=== PATIENT | female | born 1935 | race Caucasian/White ===

== ENCOUNTER 2025-01-09 09:48 | Outpatient (CLI) | payer MEDICARE, SELFPAY ==
[2025-01-09 10:27] LABS: CRP < 0.5 mg/dL (<1.0)
--- OUTSIDE RECORDS SUMMARY | 2025-01-09 10:33 | XMS_ITS | Encounter Summary ---
Author Organization [facility] Address 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 Gender Identity Not on file Sexual Orientation Not on file documented as of this encounter Last Filed Vital Signs Vital Sign Reading Time Taken Comments Blood Pressure 122/70 06/22/2003 9:45 AM CDT Pulse - - Temperature - - Respiratory Rate - - Oxygen Saturation - - Inhaled Oxygen Concentration - - Weight 64 kg (141 lb) 06/22/2003 9:45 AM CDT Height 153.7 cm (5' 0.5) 06/22/2003 9:45 AM CDT Body Mass Index 27.08 06/22/2003 9:45 AM CDT documented in this encounter Plan of Treatment Not on file documented as of this encounter Visit Diagnoses Not on filedocumented in this encounter Care Teams Invoice Coder Relationship Specialty Start Date End Date Tr Hays MD [address] [place] [phone] PCP - General Internal Medicine 05/28/24 documented as of this encounter
--- OUTSIDE RECORDS SUMMARY | 2025-01-09 10:33 | XMS_ITS | Encounter Summary ---
Author Organization [facility] Address [address] [place] [address] Care Team Providers Care Learning And Development Officer Name Role Phone Tr Hays MD Primary Care Provider Encounter Details Date Type Department Care Team (Late st Contact Info) Description 01/28/2007 Orders Only [facility] Internal Medicine [address] [address] Tr Hays MD [address] [place] [phone] Social History Tobacco Use Types Packs/Day Years Used Date Smoking Tobacco: Never Assessed Comments Unknown Sex and Gender Information Value Date Recorded Sex Assigned at Not on file Legal Sex Female 2:56 AM QUARTER BACKER Gender Identity Not on file Sexual Orientation Not on file documented as of this encounter Plan of Treatment Not on file documented as of this encounter Visit Diagnoses Not on filedocumented in this encounter Care Teams Learning And Development Officer Relationship Specialty Start Date End Date Tr Hays MD [address] [place] [address] [address] [place] [address] PCP - General Internal Medicine 05/28/24 documented as of this encounter
--- OUTSIDE RECORDS SUMMARY | 2025-01-09 10:33 | XMS_ITS | Encounter Summary ---
Author Organization [facility] Address 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
--- OUTSIDE RECORDS SUMMARY | 2025-01-09 10:33 | XMS_ITS | Encounter Summary ---
Author Organization [facility] Address 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 Gender Identity Not on file Sexual Orientation Not on file documented as of this encounter Last Filed Vital Signs Vital Sign Reading Time Taken Comments Blood Pressure 130/70 05/29/2005 10:00 AM CHILDHOOD TEACHER Pulse - - Temperature - - Respiratory Rate - - Oxygen Saturation - - Inhaled Oxygen Concentration - - Weight 66.7 kg (147 lb) 05/29/2005 10:00 AM CHILDHOOD TEACHER Height - - Body Mass Index 28.24 06/22/2003 9:45 AM CDT documented in this encounter Plan of Treatment Not on file documented as of this encounter Visit Diagnoses Not on filedocumented in this encounter Care Teams Coal Cutting Machine Operator Relationship Specialty Start Date End Date Tr Hays MD [address] [phone] PCP - General Internal Medicine 05/28/24 documented as of this encounter
--- OUTSIDE RECORDS SUMMARY | 2025-01-09 10:33 | XMS_ITS | Encounter Summary ---
Author Organization [facility] Address [address] [place] [address] Care Team Providers Care Typer Name Role Phone Tr Hays MD Primary Care Provider [phone] Encounter Details Date Type Department Care Team (Late st Contact Info) Description 10/26/2003 Outpatient [facility] Internal Medicine [address] [address] Tr Hays MD [address] [place] [phone] Social History Tobacco Use Types Packs/Day Years Used Date Smoking Tobacco: Never Assessed Comments Unknown Sex and Gender Information Value Date Recorded Sex Assigned at Not on file Legal Sex Female 2:56 AM SUBJECT SCIENTIFIC RESEARCH Gender Identity Not on file Sexual Orientation Not on file documented as of this encounter Last Filed Vital Signs Vital Sign Reading Time Taken Comments Blood Pressure 130/70 10/26/2003 11:00 AM CDT Pulse - - Temperature - - Respiratory Rate - - Oxygen Saturation - - Inhaled Oxygen Concentration - - Weight 63.5 kg (140 lb) 10/26/2003 11:00 AM CDT Height - - Body Mass Index 26.89 06/22/2003 9:45 AM CDT documented in this encounter Plan of Treatment Not on file documented as of this encounter Visit Diagnoses Not on filedocumented in this encounter Care Teams Typer Relationship Specialty Start Date End Date Tr Hays MD [address] [phone] PCP - General Internal Medicine 05/28/24 documented as of this encounter
--- OUTSIDE RECORDS SUMMARY | 2025-01-09 10:33 | XMS_ITS | Encounter Summary ---
Author Organization [facility] Address [address] [place] [address] Care Team Providers Care Furniture Removalist Name Role Phone Tr Hays MD Primary Care Provider Encounter Details Date Type Department Care Team (Late st Contact Info) Description 05/27/2007 Outpatient [facility] Internal Medicine [address] [address] Tr Hays MD [address] [place] [phone] Social History Tobacco Use Types Packs/Day Years Used Date Smoking Tobacco: Never Assessed Comments Unknown Sex and Gender Information Value Date Recorded Sex Assigned at Not on file Legal Sex Female 2:56 AM INSULATION CUPOLA CHARGER Gender Identity Not on file Sexual Orientation Not on file documented as of this encounter Plan of Treatment Not on file documented as of this encounter Visit Diagnoses Not on filedocumented in this encounter Care Teams Furniture Removalist Relationship Specialty Start Date End Date Tr Hays MD [address] [place] [address] [address] [place] [phone] PCP - General Internal Medicine 05/28/24 documented as of this encounter
--- OUTSIDE RECORDS SUMMARY | 2025-01-09 10:33 | XMS_ITS | Encounter Summary ---
Author Organization [facility] Address [address] [place] [address] Care Team Providers Care Infant Toddler Lead Teacher Name Role Phone Tr Hays MD Primary Care Provider [phone] Encounter Details Date Type Department Care Team (Late st Contact Info) Description 09/21/2003 Outpatient [facility] Internal Medicine [address] [address] Tr Hays MD [address] [place] [phone] Social History Tobacco Use Types Packs/Day Years Used Date Smoking Tobacco: Never Assessed Comments Unknown Sex and Gender Information Value Date Recorded Sex Assigned at Not on file Legal Sex Female 2:56 AM LEAD DATA ENTRY OPERATOR Gender Identity Not on file Sexual Orientation Not on file documented as of this encounter Last Filed Vital Signs Vital Sign Reading Time Taken Comments Blood Pressure 180/70 09/21/2003 10:15 AM CDT Pulse - - Temperature - - Respiratory Rate - - Oxygen Saturation - - Inhaled Oxygen Concentration - - Weight 64.9 kg (143 lb) 09/21/2003 10:15 AM CDT Height - - Body Mass Index 27.47 06/22/2003 9:45 AM CDT documented in this encounter Plan of Treatment Not on file documented as of this encounter Visit Diagnoses Not on filedocumented in this encounter Care Teams Infant Toddler Lead Teacher Relationship Specialty Start Date End Date Tr Hays MD [address] [phone] PCP - General Internal Medicine 05/28/24 documented as of this encounter
--- OUTSIDE RECORDS SUMMARY | 2025-01-09 10:33 | XMS_ITS | Encounter Summary ---
Author Organization [facility] Address [address] [place] [address] Care Team Providers Care Tuckpointer Name Role Phone Tr Hays MD Primary Care Provider [phone] Encounter Details Date Type Department Care Team (Late st Contact Info) Description 01/02/2007 Outpatient [facility] Internal Medicine [address] [address] Tr Hays MD [address] [place] [phone] Social History Tobacco Use Types Packs/Day Years Used Date Smoking Tobacco: Never Assessed Comments Unknown Sex and Gender Information Value Date Recorded Sex Assigned at Not on file Legal Sex Female 2:56 AM LOWER IN SUPERVISOR Gender Identity Not on file Sexual Orientation Not on file documented as of this encounter Last Filed Vital Signs Vital Sign Reading Time Taken Comments Blood Pressure 130/70 01/02/2007 10:00 AM CDT Pulse - - Temperature - - Respiratory Rate - - Oxygen Saturation - - Inhaled Oxygen Concentration - - Weight 68 kg (150 lb) 01/02/2007 10:00 AM CDT Height - - Body Mass Index 28.81 06/22/2003 9:45 AM CDT documented in this encounter Plan of Treatment Not on file documented as of this encounter Visit Diagnoses Not on filedocumented in this encounter Care Teams Tuckpointer Relationship Specialty Start Date End Date Tr Hays MD [address] [phone] PCP - General Internal Medicine 05/28/24 documented as of this encounter
--- OUTSIDE RECORDS SUMMARY | 2025-01-09 10:33 | XMS_ITS | Encounter Summary ---
Author Organization [facility] Address 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 Gender Identity Not on file Sexual Orientation Not on file documented as of this encounter Last Filed Vital Signs Vital Sign Reading Time Taken Comments Blood Pressure 130/70 12/26/2004 10:30 AM CDT Pulse - - Temperature - - Respiratory Rate - - Oxygen Saturation - - Inhaled Oxygen Concentration - - Weight 65.8 kg (145 lb) 12/26/2004 10:30 AM CDT Height - - Body Mass Index 27.85 06/22/2003 9:45 AM CDT documented in this encounter Plan of Treatment Not on file documented as of this encounter Visit Diagnoses Not on filedocumented in this encounter Care Teams Security Sergeant Relationship Specialty Start Date End Date Tr Hays MD [address] [phone] PCP - General Internal Medicine 05/28/24 documented as of this encounter
--- OUTSIDE RECORDS SUMMARY | 2025-01-09 10:33 | XMS_ITS | Encounter Summary ---
Author Organization [facility] Address 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 Gender Identity Not on file Sexual Orientation Not on file documented as of this encounter Last Filed Vital Signs Vital Sign Reading Time Taken Comments Blood Pressure 130/70 08/29/2004 10:30 AM CDT Pulse - - Temperature - - Respiratory Rate - - Oxygen Saturation - - Inhaled Oxygen Concentration - - Weight 64.4 kg (142 lb) 08/29/2004 10:30 AM CDT Height - - Body Mass Index 27.28 06/22/2003 9:45 AM CDT documented in this encounter Plan of Treatment Not on file documented as of this encounter Visit Diagnoses Not on filedocumented in this encounter Care Teams Night Nurse Relationship Specialty Start Date End Date Tr Hays MD [address] [phone] PCP - General Internal Medicine 05/28/24 documented as of this encounter
--- OUTSIDE RECORDS SUMMARY | 2025-01-09 10:33 | XMS_ITS | Encounter Summary ---
Author Organization [facility] Address 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
--- OUTSIDE RECORDS SUMMARY | 2025-01-09 10:33 | XMS_ITS | Encounter Summary ---
Author Organization [facility] Address 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 Gender Identity Not on file Sexual Orientation Not on file documented as of this encounter Last Filed Vital Signs Vital Sign Reading Time Taken Comments Blood Pressure 140/80 01/22/2004 10:45 AM MANAGER INFRASTRUCTURE Pulse - - Temperature - - Respiratory Rate - - Oxygen Saturation - - Inhaled Oxygen Concentration - - Weight 63 kg (139 lb) 01/22/2004 10:45 AM MANAGER INFRASTRUCTURE Height - - Body Mass Index 26.7 06/22/2003 9:45 AM CDT documented in this encounter Plan of Treatment Not on file documented as of this encounter Visit Diagnoses Not on filedocumented in this encounter Care Teams Academic Support Director Relationship Specialty Start Date End Date Tr Hays MD [address] [phone] PCP - General Internal Medicine 05/28/24 documented as of this encounter
--- OUTSIDE RECORDS SUMMARY | 2025-01-09 10:33 | XMS_ITS | Encounter Summary ---
Author Organization [facility] Address [address] [place] [address] Care Team Providers Care Curtain Cutter Hand Name Role Phone Tr Hays MD Primary Care Provider [phone] Encounter Details Date Type Department Care Team (Late st Contact Info) Description 05/29/2005 Orders Only [facility] Internal Medicine [address] [address] Tr Hays MD [address] [place] [phone] Social History Tobacco Use Types Packs/Day Years Used Date Smoking Tobacco: Never Assessed Comments Unknown Sex and Gender Information Value Date Recorded Sex Assigned at Not on file Legal Sex Female 2:56 AM EMBEDDER Gender Identity Not on file Sexual Orientation Not on file documented as of this encounter Progress Notes * Tr Hays MD - 12/12/2007 7:30 PM CDT WEIGHT: 147lbs BLOOD PRESSURE: 130/70 Right Arm Sitting NURSE NAME: Alexa Martin R CHIEF COMPLAINT Patient here for follow up hyperlipidemia, hypertension. HISTORY: HISTORY: 244.9-HYPOTHYROIDISM No complications noted from the medication presently being used.TSH high 272.4-HYPERLIPIDEMIA saurabh zetia 401.9-HYPERTENSION, UNSPECIFIED saurabh med 790.5-ABNORMAL LIVER ENZYMES slight inc-inc etoh in [place] 780.79-FATIGUE improved with zetia cut to qod but tsh inc ROS: CARDIAC: No chest pain, palpitations, orthopnea, dyspnea on exertion, or paroxysmal nocturnal dyspnea. RESPIRATORY: No dyspnea, cough, hemoptysis or wheezing. : No frequency, urgency, hematuria or dysuria. GI: No abdominal pain, nausea, vomiting, diarrhea, constipation, melena, or hematochezia. PAST MEDICAL HISTORY: inc lft, htn, thyroid, chol SOCIAL HISTORY: distant tob, > 30 years ago PHYSICAL EXAMINATION: CONSTITUTIONAL: GENERAL APPEARANCE: Healthy appearing patient in no distress. EYES: PUPILS: Pupils equal and normally reactive to light and accommodation.no twitch EARS, NOSE, MOUTH AND THROAT: ORAL: Inspection of gums, lips, palate, and teeth normal. No scars, lesions, or masses. Oral mucosaunremarkable with non-inflamed posterior pharynx. NECK/THYROID: Trachea midline. No thyroid enlargement, tenderness, or mass. No supraclavicular or cervical adenopathy. RESPIRATORY: Clear to auscultation and percussion. Normal respiratory effort. CARDIOVASCULAR: CARDIAC: Regular rhythm. No murmurs, rubs, or gallops. ARTERIAL: Aortic pulses of normal amplitude with no bruits. EDEMA/VARICOSITIES OF EXTREMITIES: No edema or varicosities. GASTROINTESTINAL: ABDOMEN: Soft, non-tender, without masses. Bowel sounds active. LIVER/SPLEEN/KIDNEY: No hepatosplenomegaly, tenderness or nodularity. Kidneys not palpable. SKIN: SKIN: Warm, dry, no diaphoresis, no significant lesions, irritation, rashes or ulcers. No induration, obvious subcutaneous nodules or tightening. ASSESSMENT/PLAN: 244.9-HYPOTHYROIDISM inc med, reassess MEDICATIONS: LEVOXYL ORAL TABLET 100 MCG, 1 Every Day, 30 Dispensed, status: NEW PRESCRIPTION, 05/29/2005. LAB ORDERS: Order number: [id number] Test Ordered: TSH 899 1 mo 272.4-HYPERLIPIDEMIA cont med, discussed 401.9-HYPERTENSION, UNSPECIFIED cont med 790.5-ABNORMAL LIVER ENZYMES stable LAB ORDERS: 3 mo Order number: [id number] Test Ordered: COMPREHENSIVE METABOLIC PANEL W/ GLOMERULAR FILTRATION RATE, ESTIMATED (EGFR) 35381 Order number: [id number] Test Ordered: LIPID PANEL 7600 Order number: [id number] Test Ordered: TSH 899 Order number: [id number] Test Ordered: VITAMIN B12 927 780.79-FATIGUE reassess lab as above PREVENTIVE COUNSELING The patient was counseled regarding diet, the appropriate use of alcohol. RETURN VISIT : Patient instructed to return in 3 months. Electronically Signed by: Tr Hays MD on Sunday, May 29, 2005 documented in this encounter Plan of Treatment Not on file documented as of this encounter Visit Diagnoses Not on filedocumented in this encounter Care Teams Curtain Cutter Hand Relationship Specialty Start Date End Date Tr Hays MD [address] [place] [phone] PCP - General Internal Medicine 05/28/24 documented as of this encounter
--- OUTSIDE RECORDS SUMMARY | 2025-01-09 10:33 | XMS_ITS | Encounter Summary ---
Author Organization [facility] Address [address] [place] [address] Care Team Providers Care Electrical Accessories I Assembler Name Role Phone Tr Hays MD Primary Care Provider [phone] Encounter Details Date Type Department Care Team (Late st Contact Info) Description 04/23/2007 Orders Only [facility] [place] Internal Medicine [address] [address] Pranay Padilla MD [address] [place] [phone] Social History Tobacco Use Types Packs/Day Years Used Date Smoking Tobacco: Never Assessed Comments Unknown Sex and Gender Information Value Date Recorded Sex Assigned at Not on file Legal Sex Female 2:56 AM CONCEPT ARTIST Gender Identity Not on file Sexual Orientation Not on file documented as of this encounter Progress Notes * Pranay Padilla MD - 07/17/2007 1:25 PM CDT TIME:03:14 pm PATIENT`S HOME PHONE: PATIENT`S WORK PHONE: PATIENT`S INSURANCE: MEDICARE WHO TOOK THE CALL: Janeen Hussein L GENERAL INFORMATION ALTERNATIVE PHONE NUMBER: [phone] WHO CALLED: Patient`s spouse called. CURRENT ALLERGY LIST: [facility] NUMBER: [phone] PROBLEMS: [place] PT. Pt is in [place]. Feels warm. Has no thermometer. CONGESTION: Patient complains of chest congestion, complains of sinus congestion. The symptoms began approximately 3 days ago. Therapies tried include cough syrup, an over the counter nasal decongestant, antihistamines. clear sinus congestion. Chest tight & she's wheezing. Harsh breathing &rattling in chest at night. COUGH:Patient complains of cough. The symptoms began approximately 3 days ago. yellow phlegm. Cough keeping her awake at night. HEADACHE: Patient complains of headache. The symptoms began approximately 3 days ago. RUNNY NOSE: Patient complains of runny nose. The runny nose symptoms began approximately 3 days ago. SECTION 1: REQUESTED ACTION [email or web address] 04/23/07 at 03:19 pm: MEDICATION REQUEST: Patient wants medications and can not come in. DOCTOR`S RESPONSE: khurram 04/23/07 at 04:20 pm MEDICATIONS: Call in to Pharmacy ZITHROMAX Z-CARLOS ORAL TABLET 250 MG, ORAL DAILY DIRECTED, 1 Dispensed, status: NEW PRESCRIPTION, 04/23/2007. PROVENTIL HFA INHALATION AEROSOL SOLUTION 108 (90 BASE) MCG/ACT, 2 PUFFS FOUR TIMES daily INHALATION NEEDED, 1 Dispensed, 1 Fills, status: NEW PRESCRIPTION, 04/23/2007. plus OTC mucinex Instruct patient to call if symptoms persist. FINAL ACTION: yisel 04/23/07 at 05:10 pm Spoke with patient 04/23/07 at 05:10 pm. Called pharmacy at 04/23/07 at 05:10 pm. Electronically Signed by: Anitra Barahona on Monday, April 23, 2007 documented in this encounter Plan of Treatment Not on file documented as of this encounter Visit Diagnoses Not on filedocumented in this encounter Care Teams Electrical Accessories I Assembler Relationship Specialty Start Date End Date Tr Hays MD [address] [place] [phone] PCP - General Internal Medicine 05/28/24 documented as of this encounter
--- OUTSIDE RECORDS SUMMARY | 2025-01-09 10:33 | XMS_ITS | Encounter Summary ---
Author Organization [facility] Address 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
--- OUTSIDE RECORDS SUMMARY | 2025-01-09 10:33 | XMS_ITS | Encounter Summary ---
Author Organization [facility] Address 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 HISTORY: HISTORY: 244.9-HYPOTHYROIDISM saurabh med has fatigue 272.4-HYPERLIPIDEMIA pt qu if zetia causing sx, stopped, lab slightly high 401.9-HYPERTENSION, UNSPECIFIED saurabh med 780.79-FATIGUE as above 786.00-DYSPNEA AND RESP ABNORMALITY UNSPEC occ with cough ROS: ENDOCRINE: No heat or cold intolerance, no excessive thirst. CARDIAC: No chest pain, palpitations, orthopnea, dyspnea [...] APPEARANCE: Healthy appearing patient in no distress. EARS, NOSE, MOUTH AND THROAT: EARS: Tympanic membranes shiny without retraction. Canals unremarkable. Hearing grossly normal. ORAL: Inspection of gums, lips, palate, and [...] obvious subcutaneous nodules or tightening. ASSESSMENT/PLAN: 244.9-HYPOTHYROIDISM cont med, recheck lab LAB ORDERS: today Order number: [id number] Test Ordered: TSH 899 272.4-HYPERLIPIDEMIA discussed, pt does not want med at this pt, reassess, enc diet and exercise 401.9-HYPERTENSION, UNSPECIFIED cont med LAB ORDERS: 3mo Order number: [id number] Test Ordered: COMPREHENSIVE METABOLIC PANEL W/ GLOMERULAR FILTRATION RATE, ESTIMATED (EGFR) 67782 Order number: [id number] Test Ordered: LIPID PANEL 7600 Order number: [id number] Test Ordered: TSH 899 Order number: [id number] Test Ordered: CBC (INCLUDES DIFF/PLT) 6399 Order number: [id number] Test Ordered: VITAMIN B12 927 786.00-DYSPNEA AND RESP ABNORMALITY UNSPEC cxr ok last year, discussed, reassess if worsens 174.9-MALIG NEOPLASM BREAST UNSPEC SITE discussed, has been stable RETURN VISIT : Patient instructed to return in 3 months. Electronically Signed by: Tr Hays MD on Sunday, August 28, 2005 documented in this encounter Plan of Treatment Not on file documented as of this encounter Visit Diagnoses Not on filedocumented in this encounter Care Teams Hybrid Car Mechanic Relationship Specialty Start Date End Date Tr Hays MD [address] [place] [phone] PCP - General Internal Medicine 05/28/24 documented as of this encounter
--- OUTSIDE RECORDS SUMMARY | 2025-01-09 10:33 | XMS_ITS | Encounter Summary ---
Author Organization [facility] Address [address] [place] [address] Care Team Providers Care Timekeeper Supervisor Name Role Phone Tr Hays MD Primary Care Provider Encounter Details Date Type Department Care Team (Late st Contact Info) Description 05/27/[address] 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
--- OUTSIDE RECORDS SUMMARY | 2025-01-09 10:34 | XMS_ITS | Clinical Summary ---
Author Organization [facility] Address [address] [place] [address] Care Team Providers Care Target Network Analyst Name Role Phone Tr Hays MD Primary Care Provider [phone] Allergies Active Allergy Reactions Criticality Noted Date Comments Ezetimibe Muscle Pain Low 02/15/2018 Medications ASPIRIN 81 mg Oral Tab Take 81 mg by mouth daily. Active MULTIVITAMIN Oral Cap Take by mouth daily. Active cholecalciferol, Vitamin D3, (VITAMIN D3) 25 mcg (1,000 unit) Capsule Take 1 Cap by mouth daily. Active cyanocobalamin 1,000 mcg Tablet Take 1,000 mcg by mouth. Two times a week Active VIT A/VIT C/VIT E/ZINC/COPPER (OCUVITE PRESERVISION ORAL) Take 2 Caps by mouth daily. Active ketorolac tromethamine (ACULAR) 0.5 % solution daily. 1 8 Active propylene glycoL 0.6 % Drops 2 Drops by Ophthalmic route daily. Active mineral oil/petrolatum,w naveen (SYSTANE NIGHTTIME OP) 2 Drops by Ophthalmic route daily at bedtime. Active amLODIPine (NORVASC) 5 mg tablet TAKE 1 AND 1/2 TABLETS DAILY (REPLACEMENT FOR LOSTBOTTLE) 135 Tablet 3 2 Active Synthroid 137 mcg tablet TAKE 1 TABLET DAILY 90 Tablet 3 2 Active amLODIPine (NORVASC) 5 mg tablet Take 1.5 Tablets (7.5 mg) by mouth daily. Replacement for lost bottle 135 Tablet 3 2 Active losartan-hydroCH LOROthiazide (HYZAAR) 100-12.5 mg tablet Take 1 Tablet by mouth daily. 90 Tablet 3 3 Active nebivoloL (BYSTOLIC) 10 mg Tablet TAKE 1 TABLET BY MOUTH DAILY 90 Tablet 3 3 Active Active Problems Patient Care Coordination No te Formatting of this note migh t be different from the original. 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 Hyperlipidemia 05/30/2004 Abnormal levels of other serum enzymes 4 Hypothyroidism 06/22/2003 Resolved Problems Problem Noted Date Diagnosed Date Resolved Date Lung mass 08/20/2009 06/07/2010 CAP (community acquired pneumonia) 08/20/2009 06/07/[address] 08/20/2009 06/07/2010 Herpes zoster without mention of complication 05/19/19 07 09/26/2007 Malignant neoplasm of female breast 08/28/2005 08/15/2016 Other malaise and fatigue 05/29/2005 Respiratory abnormality, unspecified 05/30/2004 09/26/2007 Unspecified essential hypertension 06/22/2003 06/07/2010 Immunizations Immunization Administration Dates Next Due (ADACEL/BOOSTRIX)(10 YR UP) TDAP VACCINE, 0.5ML, IM 09/07/2009 (PNEUMOVAX 23)(50 YRS UP) PN EUMOCOCCAL POLYSACCHARIDE (PPV23) 0.5 ML, IM 08/02/2018,02/14/2011,05/30/2004 (PREVNAR 13)(6 WKS UP) PNEUM OCOCCAL CONJUGATE (PCV13) 0.5 ML, IM 06/26/2013 (SHINGRIX)(50 YRS UP) ZOSTER VACCINE RECOMBINANT, 0.5 ML, IM 02/10/2019,11/25/2018 (SPIKEVAX) (12 YRS UP PRIMAR Y SERIES) COVID-19 VACCINE - MRNA-1273(PF) 100 MCG/0.5 ML IM SUSP 05/26/2020,04/28/2020 (TDVAX)(7 YRS UP) TETANUS AN D DIPHTHERIA TOXOIDS, ADSORBED (2 LF OF TETANUS TOXOID AND 2 LF OF DIPHTHERIA TOXOID), 0.5ML (PF), IM 03/05/2000 INFLUENZA VACCINE HIGH DOSE QUADRIVALENT 65 YR UP PF IM 12/01/2021,11/24/2019 Influenza Seasonal Unspecifi ed Formulation IM 2015,2013,11/27/2012,11/03,12/19/2010,11/22/2009 Influenza Vaccine High Dose 65+ Yrs IM 0 11/18/2020,11/18/2019,11/25/2018,11/20,12/05/2016,11/18/2014 Zoster Vaccine Live SQ 2013 Family History Medical History Relation Name Comments Other Father leukemia Breast Cancer Mother Relation Name Status Comments Father Mother Social History Tobacco Use Types Packs/Day Years Used Date Smoking Tobacco: Former Cigarettes 1 30 0 1954 - 1984 Smokeless Tobacco: Never Tobacco Cessation:Counseling Given: No Alcohol Use Standard Drinks/Week Comments Yes 1 (1 standard drink = 0.6 oz pur e alcohol) occasional Financial Resource Strain Answer Date R ecorded How hard is it for you to pa y for the very basics like food, housing, medical care, and heating? Not hard at all 02/16/2021 Food Insecurity Answer Date Recorded In the past 12 months, have you worried that your food would run out before you had money to buy more? Never true 02/16/2021 In the past 12 months, did y ou run out of food and didn't have money to buy more? Never true 02/16/2021 Transportation Needs Answer Date Record ed In the past 12 months, has l ack of transportation kept you from medical appointments or from getting medications? 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 Gender Identity Not on file Sexual Orientation Not on file Last Filed Vital Signs Vital Sign Reading Time Taken Comments Blood Pressure 140/82 08/28/2022 10:42 AM CDT Pulse 67 08/28/2022 10:42 AM CDT Temperature 36.5 C (97.7 F) 08/28/2022 10:42 AM CDT Respiratory Rate 15 08/28/2022 10:42 AM CDT Oxygen Saturation 95% 08/28/2022 10:42 AM CDT Inhaled Oxygen Concentration - - Weight 66.4 kg (146 lb 6.4 oz) 08/28/2022 10:42 AM CDT Height 149.9 cm (4' 11) 08/28/2022 10:42 AM CDT Body Mass Index 29.57 08/28/2022 10:42 AM CDT Plan of Treatment Health Maintenance Due Date Last Done Comments RSV VACCINE (60+ or ) (1 - 1-dose 75+ series) 11/18/2011 DTAP/TDAP/TD VACCINES (2 - T d or Tdap) 09/08/2019 09/07/2009, 03/05/2000 [place] ([place]) Preventative Visit/Annual Wellness Visit 03/05/2024 08/28/2022, 02/16/2021, 12/17/2019, Additional history exists BREAST CANCER SCREENING 09/03/2024 09/04/19 24, 07/21/2022, 07/21/2022, Additional history exists INFLUENZA VACCINE (#1) 2024 2, 11/18/2020, 11/24/2019, Additional history exists COVID-19 Vaccine (2024-2 6 season) 2024 05/26/2020, 04/28/2020 OSTEOPOROSIS SCREENING 06/21/2026 2, 06/21/2021, 06/21/2021, Additional history exists PNEUMOCOCCAL VACCINE 50+ YEARS Completed 0 08/02/2018, 06/26/2013, 02/14/2011, Additional history exists ZOSTER VACCINE Completed 02/10/2019, 11/04, 2013 Procedures Procedure Name Priority Date/Time Associated Diagnosis Comments MAMMO SCRN UNI LEFT W OR WO CAD Routine 07/21/2022 8:50 AM CDT XR DEXA BONE DENSITY AXIAL 1 OR MORE SITES Routine 06/21/2021 Osteopenia of multiple sites from Last 3 Months or Most Recently Relevant to Health Maintenance Results * MAMMO SCRN UNI LEFT W OR WO CAD (07/21/2022 8:50 AM CDT) Anatomical Region Laterality Modality Breast Left Mammography Tr Hays MD MAMMO ORDERABLES Edited Resul t - Final * XR DEXA BONE DENSITY AXIAL 1 OR MORE SITES (06/21/2021) Anatomical Region Laterality Modality Other us Tr Hays MD DIAGNOSTIC IMAGING ORDERABLES Final Result from Last 3 Months or Most Recently Relevant to Health Maintenance [place] [address] [facility] [id number] Advance Directives For more information, please contact: [phone] * Full Code (Latest Code Status on File) Date Activated Date Inactivated Comments 08/20/2009 11:27 PM 08/22/2009 2:35 PM * Full Code Date Activated Date Inactivated Comments 08/20/2009 9:52 PM 08/20/2009 11:27 PM Care Teams Target Network Analyst Relationship Specialty Start Date End Date Tr Hays MD [address] [place] [phone] PCP - General Internal Medicine 05/28/24
--- OUTSIDE RECORDS SUMMARY | 2025-01-09 10:34 | XMS_ITS | Encounter Summary ---
Author Organization [facility] Address 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 CURRENT ALLERGY LIST: [facility] NUMBER: [phone] PROBLEMS: On 05/09/06 you prescribed her Valtrex for Shingles. The Valtrex has done nothing. She'll be out of on Sun. & won't be back home until . Having a lot of pain. Was up all last night. SECTION 1: REQUESTED ACTION victor manuel 05/14/06 at 11:09 am: MEDICATION REQUEST: Pain med & ? refill on Valtrex. Patient wants medications and can not come in. Pt still in [place]. DOCTOR`S RESPONSE: man 05/14/06 at 11:22 am no point in refill on valtrex, ok pain med see end of week MEDICATIONS: Call in to Pharmacy VICODIN ORAL TABLET 5-500 MG, 1 Every Six Hours, As Needed, 40 Dispensed, status: NEW PRESCRIPTION,05/14/2006. FINAL ACTION: yisel 05/14/06 at 05:30 pm Spoke with patient 05/14/06 at 05:30 pm. Booked appointment: coming in on Sunday05/18/06 Called pharmacy at 05/14/06 at 05:30 pm. documented in this encounter Plan of Treatment Not on file documented as of this encounter Visit Diagnoses Not on filedocumented in this encounter Care Teams Otr Owner Operator Relationship Specialty Start Date End Date Tr Hays MD [address] [place] [phone] PCP - General Internal Medicine 05/28/24 documented as of this encounter
--- OUTSIDE RECORDS SUMMARY | 2025-01-09 10:34 | XMS_ITS | Encounter Summary ---
Author Organization [facility] Address [address] [facility] [place] [address] Care Team Providers Care B2B Sales Manager Name Role Phone Unavailable Primary Care Provider Unavailabl e Encounter Details Date Type Department Care Team (Late st Contact Info) Description 02/07/2024 Lab Requisition [facility] - DermPath Lab [address] [facility] [place] [phone] Yani Yeager MD [address] [facility] [address] [place] [address] Social History Tobacco Use Types Packs/Day Years Used Date Smoking Tobacco: Never Assessed Comments Unknown Sex and Gender Information Value Date Recorded Sex Assigned at Not on file Legal Sex Female 7:24 AM PROSTHODONTIST Gender Identity Not on file Sexual Orientation Not on file documented as of this encounter Plan of Treatment Not on file documented as of this encounter Procedures Procedure Name Priority Date/Time Associated Diagnosis Comments DERMATOPATHOLOGY Routine 02/07/2024 8:47 AM PROSTHODONTIST documented in this encounter Results * DERMATOPATHOLOGY (02/07/2024 8:47 AM PROSTHODONTIST) Case Report Dermatopathology Report Case: [id number] Authorizing Provider: Yani Yeager MD Collected: 02/07/2024 08:47 AM Ordering Location: [facility] - Received: 02/08/2024 06:50 AM DermPath Lab Pathologist: Ana Olivas MD Specimen: Skin, left walter 11:25 AM PROSTHODONTIST DERMATOPATHOLOGY LABORATORY Final Diagnosis Specimen A. 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 The specimen consists of a shave biopsy measuring 9x8x1 mm. Jar 0. 11:25 AM [facility] DERMATOPATHOLOGY LABORATORY Microscopic Description Specimen A. SKIN, left walter: Arising in the epidermis and extending into the dermis there are irregularly shaped aggregates of keratinocytes showing evidence of premature cornification. 11:25 AM [facility] DERMATOPATHOLOGY LABORATORY Disclaimer An external and internal positive and negative controls are appropriate for the histochemical, immunohistochemical and immunofluorescence stain(s) in this case (if any), except where stated explicitly. The performance characteristics of the stain(s) cited in this report were developed and its performance characteristic determined by the Dermatopathology Laboratory at [facility], directed by Dr. Iris Crowell. These tests need not be, and therefore are not, approved by the [place] Food and Drug Administration. The tests are used for clinical purposes. Billing Codes Specimen Charges Stain Charges 74225 1 11:25 AM [facility] DERMATOPATHOLOGY LABORATORY Embedded Images 11:25 AM [facility] DERMATOPATHOLOGY LABORATORY Pathology/Cytolo gy TISSUE SPECIMEN FROM SKIN / Unknown 02/07/2024 8:47 AM PROSTHODONTIST 02/08/2024 6:50 AM [facility] us Yani Yeager MD LAB - PATHOLOGY/CYTOLOGY ORD ERABLES Final Result DERMATOPATHOLOGY LABORATORY [facility] - Department of Dermatology [address], [address] [phone] documented in this encounter Visit Diagnoses Not on filedocumented in this encounter
--- OUTSIDE RECORDS SUMMARY | 2025-01-09 10:34 | XMS_ITS | Encounter Summary ---
Author Organization [facility] Address [address] [place] [address] Care Team Providers Care Greenskeeper Supervisor Name Role Phone Tr Hays MD Primary Care Provider [phone] Encounter Details Date Type Department Care Team (Late st Contact Info) Description 05/21/2006 Orders Only [facility] Internal Medicine [address] [address] Tr Hays MD [address] [place] [phone] Social History Tobacco Use Types Packs/Day Years Used Date Smoking Tobacco: Never Assessed Comments Unknown Sex and Gender Information Value Date Recorded Sex Assigned at Not on file Legal Sex Female 2:56 AM INDIVIDUALIZED EDUCATION PLAN AIDE Gender Identity Not on file Sexual Orientation Not on file documented as of this encounter Progress Notes * Tr Hays MD - 07/26/2007 12:38 PM CDT WHO TOOK THE CALL: Tr Hays M TIME:05:03 pm man 05/21/06 05:03 pm ADDITIONAL TEST REQUESTS/ORDERS: . spoke with pt she declines [employer] thyroid 244.9-HYPOTHYROIDISM MEDICATIONS: LEVOXYL ORAL TABLET 112 MCG, 1 Every Day, 90 Dispensed, 3 Fills, 90 Duration/Days Supply, status: DISCONTINUED, 05/21/2006. LEVOXYL ORAL TABLET 125 MCG, 1 Every Day, 90 Dispensed, 1 Fills, status: NEW PRESCRIPTION, 05/21/2006. mail script to pt withlab slip LAB ORDERS: mail for August app Order number: [id number] Test Ordered: COMPREHENSIVE METABOLIC PANEL W/ GLOMERULAR FILTRATION RATE, ESTIMATED (EGFR) [id number] Order number: [id number] Test Ordered: LIPID PANEL 7600 Order number: [id number] Test Ordered: TSH 899 herbtj 05/21/06 04:10 pm STAFF FOLLOW UP: . mailed all above to pt. tj Electronically Signed by: Tori Cerrato on Sunday, May 21, 2006 documented in this encounter Plan of Treatment Not on file documented as of this encounter Visit Diagnoses Not on filedocumented in this encounter Care Teams Greenskeeper Supervisor Relationship Specialty Start Date End Date Tr Hays MD [address] [place] [phone] PCP - General Internal Medicine 05/28/24 documented as of this encounter
--- OUTSIDE RECORDS SUMMARY | 2025-01-09 10:34 | XMS_ITS | Encounter Summary ---
Author Organization [facility] Address [address] [place] [address] Care Team Providers Care Animal Behaviorist Name Role Phone Tr Hays MD Primary Care Provider [phone] Reason for Visit * Reason Onset Date Comments Referral Request 01/09/2022 Encounter Details Date Type Department Care Team (Late st Contact Info) Description 01/09/2022 Telephone [facility] [address] [place] [address] Tr Hays MD [address] [place] [address] [address] [place] [address] Referral Request Social History Tobacco Use Types Packs/Day Years Used Date Smoking Tobacco: Former Cigarettes 1 30 0 1954 - 1984 Smokeless Tobacco: Never Alcohol Use Standard Drinks/Week Comments Yes 1 [...] on file Legal Sex Female 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 Yes Date of Next encounter: 02/13/2022 Date of Last encounter: 01/02/2022 Is patient requesting a certain provider or facility? Yes If yes, what is the provider's/facility name: Dr. Jimenez Ji Dates of Service: 01/20/2022 Provider / Facility contact information: [phone] Patient was advised they will get a call if there are any other questions, otherwise they will hearfrom the department they are requesting the referral from. Call back number: [phone] (home) Home Phone Work Phone ERN PHILOSOPHY PROFESSOR documented in this encounter Plan of Treatment Not on file documented as of this encounter Visit Diagnoses Not on filedocumented in this encounter Care Teams Animal Behaviorist Relationship Specialty Start Date End Date Tr Hays MD [address] [place] [phone] PCP - General Internal Medicine 05/28/24 documented as of this encounter
--- OUTSIDE RECORDS SUMMARY | 2025-01-09 10:34 | XMS_ITS | Encounter Summary ---
Author Organization [facility] Address [address] [place] [address] Care Team Providers Care Research Home Economist Name Role Phone Froy Ponce MD Primary Care Provider [phone] Encounter Details Date Type Department Care Team (Late st Contact Info) Description 11/13/2024 Results Follow-Up [facility] [address] [place] [address] Froy Ponce MD [facility] [place] [address] Thyroid Function [place], Comprehensive metabolic panel, CBC with auto differential, Additional followed-up results: 4 Social History Tobacco Use Types Packs/Day Years Used Date Smoking Tobacco: Never Smokeless Tobacco: Never PHQ-2 Answer Date Recorded PHQ-2 Total Score (If total score is 3 or more points, staff should administer the PHQ-9) 0 11/12/2024 Comments No Sex and Gender Information Value Date Recorded Sex Assigned at Not on file Legal Sex Female 2:07 AM REHABILITATION CONSTRUCTION SPECIALIST Gender Identity Not on file Sexual Orientation Not on file documented as of this encounter Plan of Treatment Not on file documented as of this encounter Visit Diagnoses Not on filedocumented in this encounter Care Teams Research Home Economist Relationship Specialty Start Date End Date Froy Ponce MD [address] [place] [address] PCP - General Family Medicine 09/18/22 documented as of this encounter
--- OUTSIDE RECORDS SUMMARY | 2025-01-09 10:34 | XMS_ITS | Encounter Summary ---
Author Organization [facility] Address 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 Gender Identity Not on file Sexual Orientation Not on file documented as of this encounter Last Filed Vital Signs Vital Sign Reading Time Taken Comments Blood Pressure 120/70 08/28/2005 10:00 AM CDT Pulse - - Temperature - - Respiratory Rate - - Oxygen Saturation - - Inhaled Oxygen Concentration - - Weight 65.8 kg (145 lb) 08/28/2005 10:00 AM CDT Height - - Body Mass Index 27.85 06/22/2003 9:45 AM CDT documented in this encounter Plan of Treatment Not on file documented as of this encounter Visit Diagnoses Not on filedocumented in this encounter Care Teams Plumber Relationship Specialty Start Date End Date Tr Hays MD [address] [phone] PCP - General Internal Medicine 05/28/24 documented as of this encounter
--- OUTSIDE RECORDS SUMMARY | 2025-01-09 10:34 | XMS_ITS | Encounter Summary ---
Author Organization [facility] Address [address] [place] [address] Care Team Providers Care Community Service Worker Name Role Phone Tr Hays MD Primary Care Provider Encounter Details Date Type Department Care Team (Late st Contact Info) Description 06/20/2006 Orders Only [facility] Internal Medicine [address] [address] Tr Hays MD [address] [place] [phone] Social History Tobacco Use Types Packs/Day Years Used Date Smoking Tobacco: Never Assessed Comments Unknown Sex and Gender Information Value Date Recorded Sex Assigned at Not on file Legal Sex Female 2:56 AM HOP SORTER Gender Identity Not on file Sexual Orientation Not on file documented as of this encounter Plan of Treatment Not on file documented as of this encounter Visit Diagnoses Not on filedocumented in this encounter Care Teams Community Service Worker Relationship Specialty Start Date End Date Tr Hays MD [address] [place] [address] [address] [place] [address] PCP - General Internal Medicine 05/28/24 documented as of this encounter
--- OUTSIDE RECORDS SUMMARY | 2025-01-09 10:34 | XMS_ITS | Encounter Summary ---
Author Organization [facility] Address 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 from [place] CURRENT ALLERGY LIST: [facility] NUMBER: [phone] PROBLEMS: patient call ing from [place]. patient c/o pain in back for a few days while on a cruise,now blisters broke out. Patient is sure this is shingles. She said she has had them in the past. SECTION 1: REQUESTED ACTION christy 05/09/06 at 02:11 pm: MEDICATION REQUEST: Patient wants medications and can not come in. DOCTOR`S RESPONSE: man 05/09/06 at 03:22 pm MEDICATIONS: Call in to Pharmacy [facility] 1 GM, 1 Three Times A Day, 21 Dispensed, 7 Duration/Days Supply, status: NEW PRESCRIPTION, 05/09/2006. FINAL ACTION: christy 05/09/06 at 04:03 pm Called pharmacy at 05/09/06 at 04:04 pm. Electronically Signed by: Sheri Jimenez on Tuesday, May 09, 2006 documented in this encounter Plan of Treatment Not on file documented as of this encounter Visit Diagnoses Not on filedocumented in this encounter Care Teams Ironworker Apprentice Relationship Specialty Start Date End Date Tr Hays MD [address] [place] [phone] PCP - General Internal Medicine 05/28/24 documented as of this encounter
--- OUTSIDE RECORDS SUMMARY | 2025-01-09 10:34 | XMS_ITS | Encounter Summary ---
Author Organization [facility] Address [address] [place] [address] Care Team Providers Care Packing Checker Name Role Phone Marisel Flower MD Primary Care Provider [phone] Encounter Details Date Type Department Care Team (Late st Contact Info) Description 08/20/2006 Orders Only [facility] Internal Medicine [address] [address] Marisel Flower MD [address] [place] [phone] Social History Tobacco Use Types Packs/Day Years Used Date Smoking Tobacco: Never Assessed Comments Unknown Sex and Gender Information Value Date Recorded Sex Assigned at Not on file Legal Sex Female 2:56 AM 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 [address] D.O.B: 1935 SSN: [id number] Parent/Guardian if applicable: Patient Insurance: MEDICARE ID#: [id number] Group#: ORDER(S) #: [id number] chest xray PLEASE SCHEDULE THE APPOINTMENT AT THE FOLLOWING LOCATION: [facility] [phone]. SPECIAL SCHEDULING INSTRUCTIONS: walk in ORDERING PHYSICIAN: MARISEL FLOWER MD OFFICE FIRE EXTINGUISHER TESTER & PHONE: Susy Yao E * Marisel Flower MD - 07/24/2007 4:36 PM CDT CENTRAL TEST SCHEDULING DATE: AUG 20, 2006 Note created by: Susy Yao E 11:04 a Patient Name : LEEANNA AGUILARW Address: [address] [place]. [address] D.O.B: 1935 SSN: [id number] Parent/Guardian if applicable: Patient Insurance: MEDICARE ID#: [id number] Group#: ORDER(S) #: [id number] ct abd & pelvis BEST TO CALL HOME. BEST TIME TO CALL: ANYTIME. MAY WE LEAVE MESSAGE AT THAT NUMBER: YES, LEAVE MESSAGE. PLEASE SCHEDULE THE APPOINTMENT AT THE FOLLOWING LOCATION: [facility] [phone]. TEST PRIORITY: 2 - 7 DAYS. SPECIAL SCHEDULING INSTRUCTIONS: needs prep ORDERING PHYSICIAN: MARISEL FLOWER MD OFFICE FIRE EXTINGUISHER TESTER & PHONE: Susy Yao E ORDER PRINTED BY: Ariadne Phillip A FOR SCHEDULING USE ONLY: FIRST ATTEMPT Date:AUG 22, 2006 Cheryl Rodríguez 02:[address] [facility] [phone]. APPOINTMENT DATE : 08/28/2006 ( @ 7:30 AM) The appointment was scheduled by Cheryl Rodríguez at [phone] Pre-authorization number: MEDICARE-NN FINAL ACTION Follow up completed. * Marisel Flower MD - 07/24/2007 4:36 PM CDT WEIGHT: 147lbs BLOOD PRESSURE: 124/72 Right Arm Sitting NURSE NAME: Tori Cerrato J CHIEF COMPLAINT Patient here for follow up hyperlipidemia, hypertension. 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 244.9-HYPOTHYROIDISM Recent laboratory work satisfactory.had some hair loss, improved recently 272.4-HYPERLIPIDEMIA The patient's most recent LDL was not at goal. 401.9-HYPERTENSION, UNSPECIFIED The patient is tolerating the medication. The patient denies chest pain, shortness of breath, dyspnea on exertion, pedal edema, or headache. 790.5-ABNORMAL LIVER ENZYMES The patient has no symptoms of anorexia, has no symptoms of dark urine, has no symptoms of itching, has no symptoms of jaundice, has no symptoms of light colored stools, has no complaints of nausea, has no complaints of vomiting, has no symptoms of diarrhea, has no symptoms of fatigue.worse, ltd etoh use, has had in past ROS: ENT: No hearing loss, epistaxis, hoarseness or dysphagia. No sinus congestion. ENDOCRINE: No heat or cold intolerance, no excessive thirst. CARDIAC: No chest pain, palpitations, orthopnea, dyspnea on exertion, or paroxysmal nocturnal dyspnea. RESPIRATORY: No dyspnea, cough, hemoptysis or wheezing. SKIN/BREAST/CHEST: HAS SKIN SORES. recurrent herpetic lesions around mouth PAST MEDICAL HISTORY: inc lft, htn, thyroid, chol SOCIAL HISTORY: distant tob, > 30 years ago PHYSICAL EXAMINATION: CONSTITUTIONAL: GENERAL APPEARANCE: Healthy appearing patient in no distress. EARS, NOSE, MOUTH AND THROAT: ORAL: Inspection of gums, lips, palate, and teeth normal. No scars, lesions, or masses. Oral mucosaunremarkable with non-inflamed posterior pharynx. NECK/THYROID: Trachea midline. No thyroid enlargement, tenderness, or mass. No supraclavicular or cervical adenopathy. RESPIRATORY: Clear to auscultation and percussion. Normal respiratory effort. CARDIOVASCULAR: CARDIAC: Regular rhythm. No murmurs, rubs, or gallops. ARTERIAL: No aortic bruits. EDEMA/VARICOSITIES OF EXTREMITIES: No edema or varicosities. GASTROINTESTINAL: ABDOMEN: Soft, non-tender, without masses. Bowel sounds active. LIVER/SPLEEN/KIDNEY: No hepatosplenomegaly, tenderness or nodularity. Kidneys not palpable. SKIN: SKIN: Warm, dry, no diaphoresis, no significant lesions, irritation, rashes or ulcers. No induration, obvious subcutaneous nodules or tightening. 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.9-CARCINOMA OF BREAST discussed, has been stable LAB ORDERS: 3 mo Order number: [id number] Test Ordered: CBC W/ DIFFERENTIAL 3150 Order number: [id number] Test Ordered: COMPREHENSIVE METABOLIC PANEL & GFR 1112 Order number: [id number] Test Ordered: LIPID PANEL 1078 Order number: [id number] Test Ordered: TSH 1720 244.9-HYPOTHYROIDISM cont med 272.4-HYPERLIPIDEMIA pt declines meds , enc diet and exercise 401.9-HYPERTENSION, UNSPECIFIED cont med 790.5-ABNORMAL LIVER ENZYMES inc recently, had qu area on pancreas in past, recheck ct LAB ORDERS: Osmani Order number: [id number] Test Ordered: CT ABDOMEN & PELVIS WITH CONTRAST Order number: [id number] Test Ordered: XRAY CHEST (2 VIEWS) PREVENTIVE COUNSELING The patient was counseled regarding diet, the appropriate use of alcohol, regular sustained exercise for at least 30 minutes 3-4 times per week, routine screening interval for mammogram as recommended by the [employer] and ACOG. RETURN VISIT : Patient instructed to return in 3 months. Electronically Signed by: Marisel Flower MD on Sunday, August 20, 2006 documented in this encounter Plan of Treatment Not on file documented as of this encounter Visit Diagnoses Not on filedocumented in this encounter Care Teams Packing Checker Relationship Specialty Start Date End Date Marisel Flower MD [address] [place] [phone] PCP - General Internal Medicine 05/28/24 documented as of this encounter
--- OUTSIDE RECORDS SUMMARY | 2025-01-09 10:34 | XMS_ITS | Encounter Summary ---
Author Organization [facility] Address [address] [place] [address] Care Team Providers Care Loom Control Chain Builder Name Role Phone Unavailable Primary Care Provider Unavailabl e Encounter Details Date Type Department Care Team (Late st Contact Info) Description 02/14/2024 Lab Requisition [facility] - DermPath Lab [address] [facility] [place] [id number] Yani Yeager MD [address] [facility] [address] DEPT [place] [address] Social History Tobacco Use Types Packs/Day Years Used Date Smoking Tobacco: Never Assessed Comments Unknown Sex and Gender Information Value Date Recorded Sex Assigned at Not on file Legal Sex Female 7:24 AM MECHANICAL HANDYMAN Gender Identity Not on file Sexual Orientation Not on file documented as of this encounter Plan of Treatment Not on file documented as of this encounter Procedures Procedure Name Priority Date/Time Associated Diagnosis Comments DERMATOPATHOLOGY Routine 02/14/2024 3:20 PM MECHANICAL HANDYMAN documented in this encounter Results * DERMATOPATHOLOGY (02/14/2024 3:20 PM MECHANICAL HANDYMAN) Case Report Dermatopathology Report Case: [id number] Authorizing Provider: Yani Yeager MD Collected: 02/14/2024 03:20 PM Ordering Location: [facility] Physician [facility] - Received: 02/15/2024 01:09 PM DermPath Lab Pathologist: Natalie Barry MD Specimen: Skin, left walter 4 12:32 PM MECHANICAL HANDYMAN DERMATOPATHOLOGY LABORATORY Final Diagnosis Specimen A. SKIN, left walter: DERMAL SCAR RESIDUAL SQUAMOUS CELL CARCINOMA NOT IDENTIFIED (L90.5) 4 12:32 PM MECHANICAL HANDYMAN DERMATOPATHOLOGY LABORATORY at 1232 MECHANICAL HANDYMAN Clinical History Disc excisio bx proven SCC 4 12:32 PM [facility] [[email or web address]] DERMATOPATHOLOGY LABORATORY Gross Description Specimen A: Received is one formalin filled container labeled with the patient's name and designated left walter. The specimen consists of a non-oriented ellipse of skin measuring [id number] mm. The epidermal surface is unremarkable. The margin is inked green. The 12 o'clock and 6 o'clock tips are submitted in cassette 1. The remainder of the ellipse is serially sectioned and submitted in cassette 2. Jar 0. 4 12:32 PM [facility] [[email or web address]] DERMATOPATHOLOGY LABORATORY Microscopic Description Specimen A. SKIN, left walter: There are fibroblasts and collagen bundles oriented parallel to the skin surface. There are elongated blood vessels, some of which are oriented perpendicular to the skin surface. No residual squamous cell carcinoma is identified. 4 12:32 PM [facility] [[email or web address]] DERMATOPATHOLOGY LABORATORY Disclaimer An external and internal positive and negative controls are appropriate for the histochemical, immunohistochemical and immunofluorescence stain(s) in this case (if any), except where stated explicitly. The performance characteristics of the stain(s) cited in this report were developed and its performance characteristic determined by the Dermatopathology Laboratory at [facility], directed by Dr. Iris Crowell. These tests need not be, and therefore are not, approved by the [place] Food and Drug Administration. The tests are used for clinical purposes. Billing Codes Specimen Charges Stain Charges 65576 1 4 12:32 PM [facility] [[email or web address]] DERMATOPATHOLOGY LABORATORY Embedded Images 4 12:32 PM [facility] [[email or web address]] DERMATOPATHOLOGY LABORATORY Pathology/Cytolo gy TISSUE SPECIMEN FROM SKIN / Unknown 02/14/2024 3:20 PM MECHANICAL HANDYMAN 02/15/2024 1:09 PM [facility] [[email or web address]] us Yani Yeager MD LAB - PATHOLOGY/CYTOLOGY ORD ERABLES Final Result DERMATOPATHOLOGY LABORATORY [facility] - Department of Dermatology [address], [address] [phone] documented in this encounter Visit Diagnoses Not on filedocumented in this encounter
--- OUTSIDE RECORDS SUMMARY | 2025-01-09 10:34 | XMS_ITS | Encounter Summary ---
Author Organization [facility] Address [address] [place] [address] Care Team Providers Care Senior Restaurant Manager Name Role Phone Tr Hays MD Primary Care Provider [phone] Encounter Details Date Type Department Care Team (Late st Contact Info) Description 05/29/2015 Nurse Triage Report [facility] ABSTRACTION Julissa Curry RN Social History Tobacco Use Types Packs/Day Years Used Date Smoking Tobacco: Former Cigarettes 1 30 0 1954 - 1984 Smokeless Tobacco: Never Alcohol Use Standard Drinks/Week Comments Yes 1 (1 standard drink = 0.6 oz pur e alcohol) occasional Comments No Sex and Gender Information Value Date Recorded Sex Assigned at Not on file Legal Sex Female 2:56 AM OPERATING ROOM MANAGER Gender Identity Not on file Sexual Orientation Not on file documented as of this encounter Progress Notes * Julissa Bettencourt RN - 05/29/2015 10:19 AM CDT CHART DOCUMENTATION ONLY Call Type: Triage Call Addendum Date and Time [id number] Presenting Problem: I have frequency and pressure with urinating. Report feedback to Dr. Tr Hays Associated Symptoms: frequency urination, pressure and buring with urination Onset: x 3 hours Location: Pain Assessment: 1 - 10 with 10 being the most severe pain 5 Treatment so far for current presenting problem: drinking increased water History (Clinical Problems): knee replacement x 4 weeks ago, last urinary infection x 2 months ago , pt has cipro at home from previous order at time of last UTI Medications: hydrocodone, aspirin, amlodipine, labetalol, synthroid, lisinopril Medication reactions: NKDA <<<<<<<< TRIAGE NOTE >>>>>>>> Triage Note: Repair Technician Julissa Bettencourt added this note on May 29 2015 10:03AM: Pt with Cipro course from previous prescription available as home. Physician bus transportation manager paged for this reason. Repair Technician [email or web address] added this note on May 29 2015 10:18AM Contact Dr. Alcon Ji bus transportation manager. Discussed pt condition/medications available. Recommendation of taking Cipro available and call office on Sunday if symptoms not better. Call back to pt. Agreeable with plan. <<<<<<<< TRIAGE/OUTCOME >>>>>>>> Guideline Title: Urinary Symptoms - Female ; Urinary Symptoms - Female Recommended Disposition: See Provider within 24 hours Original Inclination: Call Provider/See in 24 Override Disposition: See Provider Immediately Intended Action: Call Provider Immediately Physician Contacted: Yes Has one or more urinary tract symptoms AND has not been previously evaluated ? YES documented in this encounter Plan of Treatment Not on file documented as of this encounter Visit Diagnoses Not on filedocumented in this encounter Care Teams Senior Restaurant Manager Relationship Specialty Start Date End Date Tr Hays MD [address] [place] [address] PCP - General Internal Medicine 05/28/24 documented as of this encounter
--- OUTSIDE RECORDS SUMMARY | 2025-01-09 10:34 | XMS_ITS | Encounter Summary ---
Author Organization [facility] Address 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 Gender Identity Not on file Sexual Orientation Not on file documented as of this encounter Last Filed Vital Signs Vital Sign Reading Time Taken Comments Blood Pressure 124/72 08/20/2006 10:30 AM CDT Pulse - - Temperature - - Respiratory Rate - - Oxygen Saturation - - Inhaled Oxygen Concentration - - Weight 66.7 kg (147 lb) 08/20/2006 10:30 AM CDT Height - - Body Mass Index 28.24 06/22/2003 9:45 AM CDT documented in this encounter Plan of Treatment Not on file documented as of this encounter Visit Diagnoses Not on filedocumented in this encounter Care Teams Desk Clerks Supervisor Relationship Specialty Start Date End Date Tr Hays MD [address] [phone] PCP - General Internal Medicine 05/28/24 documented as of this encounter
--- OUTSIDE RECORDS SUMMARY | 2025-01-09 10:34 | XMS_ITS | Encounter Summary ---
Author Organization [facility] Address 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 Gender Identity Not on file Sexual Orientation Not on file documented as of this encounter Last Filed Vital Signs Vital Sign Reading Time Taken Comments Blood Pressure 130/70 11/27/2005 10:00 AM CDT Pulse - - Temperature - - Respiratory Rate - - Oxygen Saturation - - Inhaled Oxygen Concentration - - Weight 67.1 kg (148 lb) 11/27/2005 10:00 AM CDT Height - - Body Mass Index 28.43 06/22/2003 9:45 AM CDT documented in this encounter Plan of Treatment Not on file documented as of this encounter Visit Diagnoses Not on filedocumented in this encounter Care Teams Undercover Agent Relationship Specialty Start Date End Date Tr Hays MD [address] [phone] PCP - General Internal Medicine 05/28/24 documented as of this encounter
--- OUTSIDE RECORDS SUMMARY | 2025-01-09 10:34 | XMS_ITS | Encounter Summary ---
Author Organization [facility] Address [address] [place] [address] Care Team Providers Care Fuel Cell Designer Name Role Phone Tr Hays MD Primary Care Provider Encounter Details Date Type Department Care Team (Late st Contact Info) Description 02/20/[address] [facility] Internal Medicine [address] [address] Tr Hays MD [address] [place] [phone] Social History Tobacco Use Types Packs/Day Years Used Date Smoking Tobacco: Never Assessed Comments Unknown Sex and Gender Information Value Date Recorded Sex Assigned at Not on file Legal Sex Female 2:56 AM HEALTHCARE FACILITY ADMINISTRATOR Gender Identity Not on file Sexual Orientation Not on file documented as of this encounter Plan of Treatment Not on file documented as of this encounter Visit Diagnoses Not on filedocumented in this encounter Care Teams Fuel Cell Designer Relationship Specialty Start Date End Date Tr Hays MD [address] [place] [address] [address] [place] [phone] PCP - General Internal Medicine 05/28/24 documented as of this encounter
--- OUTSIDE RECORDS SUMMARY | 2025-01-09 10:34 | XMS_ITS | Encounter Summary ---
Author Organization [facility] Address [address] [place] [address] Care Team Providers Care Waste Water Operator Name Role Phone Tr Hays MD Primary Care Provider [phone] Encounter Details Date Type Department Care Team (Late st Contact Info) Description 05/18/2006 Outpatient [facility] Internal Medicine [address] [address] Tr Hays MD [address] [place] [phone] Social History Tobacco Use Types Packs/Day Years Used Date Smoking Tobacco: Never Assessed Comments Unknown Sex and Gender Information Value Date Recorded Sex Assigned at Not on file Legal Sex Female 2:56 AM DRUPAL ARCHITECT Gender Identity Not on file Sexual Orientation Not on file documented as of this encounter Last Filed Vital Signs Vital Sign Reading Time Taken Comments Blood Pressure 130/72 05/18/2006 2:00 PM CDT Pulse - - Temperature - - Respiratory Rate - - Oxygen Saturation - - Inhaled Oxygen Concentration - - Weight 69.4 kg (153 lb) 05/18/2006 2:00 PM CDT Height - - Body Mass Index 29.39 06/22/2003 9:45 AM CDT documented in this encounter Plan of Treatment Not on file documented as of this encounter Visit Diagnoses Not on filedocumented in this encounter Care Teams Waste Water Operator Relationship Specialty Start Date End Date Tr Hays MD [address] [phone] PCP - General Internal Medicine 05/28/24 documented as of this encounter
--- OUTSIDE RECORDS SUMMARY | 2025-01-09 10:34 | XMS_ITS | Clinical Summary ---
Author Organization [facility] Medical Office Building B Address [address] [place] [address] Care Team Providers Care Desk Director Name Role Phone Froy Ponce MD Primary Care Provider [phone] Allergies Active Allergy Reactions Criticality Noted Date Comments Ezetimibe Muscle pain Medium 02/15/2018 Medications cholecalciferol (cholecalcifero l) 1,000 unit tablet 0 0 09/21/19 13 Active Additional Information Patient taking differently: 1,000 Units oral Daily, Vitamin D3 4000, Reported on 11/12/2024 aspirin (ASPIR-LOW) 81 mg tablet take 1 tablet by oral route every day 0 0 11/12/19 14 Active multivitamin tablet tablet take 1 tablet by oral route every day with food 0 0 11/12/19 14 Active cyanocobalamin (Vitamin B-12) 500 mcg tabletIndicatio ns:Prevention of Vitamin B12 Deficiency Take 1 tablet (500 mcg total) by mouth 2x a week Active vit C,D-Ru-byige-patrick tein-zeaxan 250-90-40-1 mg capsule Take by mouth daily PRESERVISION AREDS 2 Active levothyroxine (SYNTHROID) 137 mcg tabletIndicatio ns:Hypothyroidi sm, unspecified type TAKE 1 TABLET BY MOUTH EARLY IN THE MORNING BEFORE BREAKFAST 90 tablet 3 10/09/19 25 Active amLODIPine (NORVASC) 5 mg tabletIndicatio ns:Primary hypertension Take 1.5 tablets (7.5 mg total) by mouth daily 135 tablet 3 10/28/19 25 Active Additional Information Patient taking differently: 5 mg oral Daily, (No instructions reported), Reported on 11/12/2024 losartan (COZAAR) 50 mg tabletIndicatio ns:Primary hypertension Take 1 tablet by mouth daily 90 tablet 3 10/28/19 25 Active nebivoloL (BYSTOLIC) 10 mg tabletIndicatio ns:Primary hypertension TAKE 1 TABLET BY MOUTH DAILY 90 tablet 3 12/30/19 25 Active nebivoloL (BYSTOLIC) 10 mg tabletIndicatio ns:Primary hypertension TAKE 1 TABLET BY MOUTH DAILY 100 tablet 1 07/14/19 25 2024 Discontinued Active Problems Problem Noted Date Diagnosed Date Early dry stage nonexudative age-related macular degeneration of both eyes 09/18/2022 Assessment & Plan (06/17/2024 4:01 PM CDT): Stable, well controlled; no changes to vision; continues to follow with ophthalmology Assessment & Plan (03/16/2023 4:11 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): Stable, follows with ophthalmology for regular injections; has some difficulty with reading; which generally improves Assessment & Plan (09/18/2022 4:15 PM CDT): Impacts up close vision, has difficulty with very bright or very dim Avoids night time driving Can drive during the day Follows with ophthalmology for management PVC (premature ventricular contraction) 01/21/20 Assessment & Plan (11/30/2024 10:00 PM CDT): Stable, generally well controlled, decreased impact with decreased caffeine intake Continue nebivolol 10 mg daily, limit caffeine intake PAC (premature atrial contraction) 01/20/2022 Hyperlipidemia 01/20/2022 Assessment & Plan (11/30/2024 10:00 PM CDT): Stable, generally well controlled with near optimal LDL cholesterol levels Encourage low-fat high-fiber diet Assessment & Plan (06/17/2024 3:59 PM CDT): Near optimal lipids; encourage low-fat high-fiber diet; regular physical activity Assessment & Plan (11/07/2023 2:20 PM CDT): Chronic, stable Near optimal total cholesterol, Optimal LDL Encourage low-fat diet Assessment & Plan (03/16/2023 4:10 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 Palpitations 01/20/2022 Assessment & Plan (01/20/2022 12:54 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): Monitor shows very rare PACs PVCs of 1 run of ventricular tachycardia totaling 6 beats. This amount of arrhythmia is probably does not warrant medical intervention. Will see what her echocardiogram shows. We may want to do a 30 day event monitor to make sure we have an adequate sampling of her arrhythmias. Primary hypertension 01/20/2022 Assessment & Plan (11/30/2024 10:00 PM CDT): Stable, well controlled, blood pressure at goal; continue amlodipine 5 mg daily, losartan 50 mg daily, Bystolic 10 mg daily Assessment & Plan (06/17/2024 4:00 PM CDT): Stable, well controlled, blood pressure at goal; no chest pain pressure Continue amlodipine 7.5 mg daily, losartan 50 mg daily, nebivolol 10 mg daily Assessment & Plan (11/07/2023 2:21 PM CDT): Chronic, stable, well controlled BP at goal at visit; 124/66 Continue Amlodipine 7.5 mg, Losartan 50 mg daily and Nebivolol 10 mg daily Assessment & Plan (03/16/2023 4:10 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 At this point I would make no changes but it is possible this could be simplified. Screen for colon cancer 08/03/2020 Cardiomegaly 02/27/2019 Thoracic aorta atherosclerosis 02/27/2019 Assessment & Plan (09/18/2022 4:14 PM CDT): Stable, generally well controlled, no evidence of symptomatic disease Continue ASA 81 mg daily Patient does not tolerate statins or Zetia; encourage low-fat high-fiber diet Thoracic spondylosis 02/27/2019 Assessment & Plan (09/18/2022 4:14 PM CDT): No significant back pain; continue to monitor Hypothyroidism 06/22/2003 Assessment & Plan (11/30/2024 10:01 PM CDT): Stable, well controlled; TSH mildly elevated with normal T4; energy levels and weight normal Continue levothyroxine 137 mcg daily Assessment & Plan (06/17/2024 4:00 PM CDT): Stable, well controlled, TSH at goal with normal T4 Continue levothyroxine 137 mcg daily Assessment & Plan (11/07/2023 2:22 PM CDT): Chronic, stable Continue Levothyroxine 137 mcg daily Assessment & Plan (03/16/2023 4:11 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): Stable, no changes to energy levels, no changes to wait Generally rides 30-40 miles on bicycle outside Continue levothyroxine 137 mcg daily Assessment & Plan (09/18/2022 4:15 PM CDT): Good energy levels; no significant weigh tchanges Can be active for 4-5 hours; rides bike 10 miles per day Continue levothyroxine 137 mcg daily Resolved Problems Problem Noted Date Diagnosed Date Resolved Date Stage 3a chronic kidney disease 10/20/2020 11/12/2024 Assessment & Plan (06/17/2024 4:00 PM CDT): Well controlled, most recent EGFR improved; continue to monitor with appropriate blood pressure control, avoid nephrotixc medications Assessment & Plan (03/16/2023 4:11 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): Stable, no major changes; continue to monitor kidney function; avoid nephrotoxic medications Assessment & Plan (09/18/2022 4:14 PM CDT): GFR is stable from 1 year ago Malignant neoplasm of breast 06/13/2017 11/12/2024 Assessment & Plan (09/18/2022 4:15 PM CDT): Masectectomy in 1988 No further episodes of recurrence; Encounters Date Type Department Care Team Description 11/13/2024 Results Follow-Up [facility] [address] [id number] Froy Ponce MD Thyroid Function Bibb, Comprehensive metabolic panel, CBC with auto differential, Additional followed-up results: 4 11/12/2024 11:00 AM CDT Office Visit [facility] [address] [phone] Froy Ponce MD Primary hypertension (Primary Dx); Hyperlipidemia, unspecified hyperlipidemia type; Post-menopause; Medicare annual wellness visit, subsequent; PVC (premature ventricular contraction); Hypothyroidism, unspecified type 11/10/2024 8:10 AM CDT Lab [facility] [address] [place] [id number] Hyperlipidemia, unspecified hyperlipidemia type; Primary hypertension 10/22/2024 1:13 PM CDT - 10/22/2024 11:59 PM CDT Hospital Encounter [facility] [address] [place] [address] Encounter for screening mammogram for malignant neoplasm of breast Discharge Disposition: Discharge to home or self care 10/22/2024 Results Follow-Up [facility] Primary Care at [address] [place] [address] Natalie Sumner, AMBERLY Screening Mammogram Left W Andre Unilateral Only 10/21/2024 ACO Medication Access [facility] Accountable Care Organization [address] [place] [id number] Kelsey Sawyer, 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 from Last 3 Months Immunizations Immunization Administration Dates Next Due Influenza, Trivalent, High D ose, Split, Preservative Free, Intramuscular 12/01/2021,11/18/2020,11/24/2019,11/17,11/25/2018,11/19/2017,12/04/2016 ,11/14/2015,2014 Influenza, Trivalent, IM (MDV) 6,11/11/2013,11/27/2012,11/03,12/19/2010,11/22/2009 Influenza, Unspecified 12/03/2022 Moderna SARS-CoV-2 Monovalen t Vaccination (12+ YRS) 05/26/2020,04/28/2020 Pneumococcal Conjugate PCV 13 06/26/2013 Pneumococcal Polysaccharide PPV23 08/02/2018,,05/30/2004 Td, adsorbed 03/05/2000 Tdap 09/07/2009 ZOSTER LIVE 11/11/2013 ZOSTER Recombinant 02/10/2019,11/25/2018 Surgical History Surgery Date Site/Laterality Comments COLONOSCOPY ten [address] Mallory COLONOSCOPY 09/14/2020 MASTECTOMY 03/05/1988 - 03/04/1989 Right surgical REPLACEMENT TOTAL KNEE BILATERAL TOTAL HIP ARTHROPLASTY Right Medical History Medical History Date Comments Hypertension Hyperlipidemia Hypothyroidism Family History Medical History Relation Name Comments Breast cancer Mother Ovarian cancer Neg Hx Thyroid cancer Neg Hx Relation Name Status Comments Mother Social History Tobacco Use Types Packs/Day Years Used Date Smoking Tobacco: Never Smokeless Tobacco: Never Tobacco Cessation:Counseling Given: Not Answered PHQ-2 Answer Date Recorded PHQ-2 Total Score (If total score is 3 or more points, staff should administer the PHQ-9) 0 11/12/2024 Comments No Sex and Gender Information Value Date Recorded Sex Assigned at Not on file Legal Sex Female 2:07 AM SUGAR REFINERY SUPERVISOR Gender Identity Not on file Sexual Orientation Not on file Obstetrics History Para Term AB IAB SAB Ectopic Multiple Livin g Live Births 4 4 4 4 Date Outcome GA Total Labor Labor/2nd/3rd Weight Sex Type Anes PTL Tracy A1 A5 Name Clin Term Term Term Term Last Filed Vital Signs Vital Sign Reading Time Taken Comments Blood Pressure 130/70 11/12/2024 10:54 AM CDT Pulse 78 11/12/2024 10:54 AM CDT Temperature 36.7 C (98.1 F) 11/12/2024 10:54 AM CDT Respiratory Rate 18 11/12/2024 10:54 AM CDT Oxygen Saturation 98% 11/12/2024 10:54 AM CDT Inhaled Oxygen Concentration - - Weight 67.1 kg (148 lb) 11/12/2024 10:54 AM CDT Height 147.3 cm (4' 10) 11/12/2024 10:54 AM CDT Body Mass Index 30.93 11/12/2024 10:54 AM CDT Plan of Treatment Health Maintenance Due Date Last Done Comments Hepatitis B Screening 1953 DTaP/Tdap/Td Vaccine (2 - Td or Tdap) 09/08/2019 09/07/2009, 03/05/2000 Osteoporosis Screening-Bone Density Scan 06/22/2023 06/21/2021, 06/21/2021, 06/21/2021, Additional history exists Covid-19 Vaccine (2024- 6 season) 2024 05/26/2020, 04/28/2020 Influenza Vaccine (#1) 2024 , 12/01/2021, 11/18/2020, Additional history exists Depression Screening 11/12/2025 11/12/2024, 11/07/2023, 02/14/2023, Additional history exists Fall Risk Assessment 11/12/2025 11/12/2024, 11/07/2023, 02/14/2023, Additional history exists Well Visit 65+ 11/12/2025 11/12/2024, 11/07/2023 Pneumococcal vaccine 65+ Completed 019, 06/26/2013, 02/14/2011, Additional history exists Zoster Vaccine Completed 02/10/2019, 11/04, 11/11/2013 Procedures Procedure Name Priority Date/Time Associated Diagnosis Comments EGFR Routine 11/10/2024 8:09 AM CDT Primary hypertension T4, FREE Routine 11/10/2024 8:09 AM CDT Hyperlipidemia, unspecified hyperlipidemia type DIFFERENTIAL AUTO Routine 11/10/2024 8:0 9 AM CDT Primary hypertension LIPID PANEL Routine 11/10/2024 8:09 AM CDT Primary hypertension CBC WITH AUTO DIFFERENTIAL Routine 11/10/2024 8:09 AM CDT Primary hypertension COMPREHENSIVE METABOLIC PANEL Routine 11/10/2024 8:09 AM CDT Primary hypertension THYROID FUNCTION CASCADE Routine 11/10/2024 8:09 AM CDT Hyperlipidemia, unspecified hyperlipidemia type SCREENING MAMMOGRAM LEFT W ANDRE UNILATERAL ONLY Schedule Routine, Read Routine (OP Routine) 10/22/2024 1:38 PM CDT Encounter for screening mammogram for malignant neoplasm of breast DEXA AXIAL SKELETON BONE DENSITY 1 OR MORE SITES Schedule Routine, Read Routine (OP Routine) 06/21/2021 9:24 AM CDT Other specified disorders of bone density and structure, multiple sites from Last 3 Months or Most Recently Relevant to Health Maintenance Results * eGFR (11/10/2024 8:09 AM CDT) eGFR 63 >=60 mL/min/1. 73 m2 Comment: Interpretive Data Reference Interval Normal >/= 90 mL/min/1.73m2 Mildly decreased* 60 - 89 mL/min/1.73m2 Mildly to moderately decreased 45 - 59 mL/min/1.73m2 Moderately to severely decreased 30 - 44 mL/min/1.73m2 Severely decreased 15 - 29 mL/min/1.73m2 Kidney Failure < 15 mL/min/1.73m2 *Relative to young adult level Estimated glomerular filtration rate is determined by the 2020 CKD-EPI equation recommended by the National Kidney Foundation (A Unifying Approach to GFR Estimation: Recommendations of the NKF-ASK Task Force on Reassessing the Inclusion of Race in Diagnosing Kidney Disease, JASN 2020). The CKD-EPI equation should not be used for patients with unstable renal function and has not been validated in children and those over 70. Current interpretive data was last reviewed 2021. Testing performed by: [address] [address] Blood 11/10/2024 8:09 AM CDT 11/10/2024 2:42 PM CDT Froy Ponce MD LAB BLOOD ORDERABLES Stefania echols Result LUCIANO BROWN ([place]) 1 [facility] [place] [address] * Differential, auto (11/10/2024 8:09 AM CDT) Neutrophil abs 4.63 1.50 - 6.50 K/cumm Comment:Testing performed by : [address] [address] Imm gran abs 0.04 0.00 - 0.10 K/cumm [facility] ([place]) Comment:Testing performed by : [address] [address] Lymphocyte abs 2.46 0.80 - 3.30 K/cumm [facility] ([place]) Comment:Testing performed by : [address] [address] Monocyte abs 0.64 0.20 - 0.80 K/cumm [facility] ([place]) Comment:Testing performed by : [address], [address] Eosinophil abs 0.47 0.00 - 0.50 K/cumm [facility] ([place]) Comment:Testing performed by : [facility], [address] [place] [address]., [address] Basophil abs 0.09 0.00 - 0.10 K/cumm [facility] ([place]) Comment:Testing performed by : [facility], [address] [place] [address]., [address] Neutrophil pct 55.6 % [facility] ([place]) Comment: Interpretive Data Percent cell count reference ranges are not reported, since discordance with absolute values may lead to misinterpretation of CBC data. Current Interpretive Data was last revised on 2017. Testing performed by: [facility], [address] [place] [address]., [address] Imm gran pct 0.5 % [facility] ([place]) Comment: Interpretive Data Percent cell count reference ranges are not reported, since discordance with absolute values may lead to misinterpretation of CBC data. Current Interpretive Data was last revised on 2017. Testing performed by: [facility], [address] [place] [address]., [address] Lymphocyte pct 29.5 % [facility] ([place]) Comment: Interpretive Data Percent cell count reference ranges are not reported, since discordance with absolute values may lead to misinterpretation of CBC data. Current Interpretive Data was last revised on 2017. Testing performed by: [facility], [address] [place] [address]., [address] Monocyte pct 7.7 % [facility] ([place]) Comment: Interpretive Data Percent cell count reference ranges are not reported, since discordance with absolute values may lead to misinterpretation of CBC data. Current Interpretive Data was last revised on 2017. Testing performed by: [address] [address] Eosinophil pct 5.6 % [facility] ([place]) Comment: Interpretive Data Percent cell count reference ranges are not reported, since discordance with absolute values may lead to misinterpretation of CBC data. Current Interpretive Data was last revised on 2017. Testing performed by: [address] [address] Basophil pct 1.1 % [facility] ([place]) Comment: Interpretive Data Percent cell count reference ranges are not reported, since discordance with absolute values may lead to misinterpretation of CBC data. Current Interpretive Data was last revised on 2017. Testing performed by: [facility], [address] [place] [address]., [address] Blood 11/10/2024 8:09 AM CDT 11/10/2024 2:13 PM CDT Froy Ponce MD LAB BLOOD ORDERABLES Stefania l Result Performing Organization Address City/[facility] Co de Phone Number LUCIANO BROWN ([place]) 1 [facility] [place] [address] * (ABNORMAL) Thyroid Function Bibb (11/10/2024 8:09 AM CDT) Pathologist [facility] TSH 5.08(H) 0.30 - 4.20 mcIUnit/mL Comment:Testing performed by : [address], [address] Blood 11/10/2024 8:09 AM CDT 11/10/2024 2:13 PM CDT Froy Ponce MD LAB BLOOD ORDERABLES Stefania l Result Performing Organization Address [facility] Co de Phone Number LUCIANO BROWN ([place]) [address] [place] [address] * CBC with auto differential (11/10/2024 8:09 AM CDT) WBC 8.33 3.80 - 9.90 K/cumm Comment:Testing performed by : [address] [address] Hgb 14.3 11.9 - 15.5 g/dL [facility] ([place]) Comment:Testing performed by : [facility], [address] [place] [address]., [address] Hct 43.4 35.6 - 45.5 % [facility] ([place]) Comment:Testing performed by : [address] [address] Plt 237 150 - 400 K/cumm [facility] ([place]) Comment:Testing performed by : [facility], [address] [place] [address], [address] MPV 9.1 9.1 - 12.3 fL [facility] ([place]) Comment:Testing performed by : [facility], [address] [place] [address], [address] RBC 4.78 3.90 - 5.20 M/cumm [facility] ([place]) Comment:Testing performed by : [facility], [address] [place] [address], [address] MCV 90.8 81.3 - 96.4 fL [facility] ([place]) Comment:Testing performed by : [address], [address] MCH 29.9 27.1 - 33.3 pg [facility] ([place]) Comment:Testing performed by : [address], [address] MCHC 32.9 32.3 - 35.7 g/dL [facility] ([place]) Comment:Testing performed by : [address], [address] RDW CV 13.5 11.1 - 14.9 % [facility] ([place]) Comment:Testing performed by : [address], [address] RDW SD 45.1 35.7 - 48.1 fL [facility] ([place]) Comment:Testing performed by : [address], [address] NRBC abs 0.00 0.00 - 0.01 K/cumm [facility] ([place]) Comment:Testing performed by : [address], [address] Blood 11/10/2024 8:09 AM CDT 11/10/2024 2:13 PM CDT us Froy Ponce MD LAB BLOOD ORDERABLES Stefania echols Result [facility] ([place]) 1 [facility] Department [place] [address] * T4, free (11/10/2024 8:09 AM CDT) Free T4 1.28 0.90 - 1.70 ng/dL Comment:Testing performed by : [facility], [address] [place] [address]., [address] Blood 11/10/2024 8:09 AM CDT 11/10/2024 2:42 PM CDT us Froy Ponce MD LAB BLOOD ORDERABLES Stefania onesimo Result LUCIANO KEVIN ([place]) 1 [facility] Department [place] [address] * (ABNORMAL) Lipid panel (11/10/2024 8:09 AM CDT) Cholesterol 219(H) 30 - 199 mg/dL Comment: Interpretive Data Ages < or = 19 years Acceptable: <170 mg/dL Borderline high: 170-199 mg/dL High: >or= 200 mg/dL Ages > or = 20 years Desirable: <200 mg/dL Borderline high: 200-239 mg/dL High: >or= 240 mg/dL Literature References: 1. Expert Panel on Integrated Guidelines for Cardiovascular Health and Risk Reduction in Children and Adolescents. Pediatrics 2011;128:S213 2. NCEP Expert Panel. Circulation 2004;110:227 Current Interpretive Data was last revised on 2017. Testing performed by: [facility], [address] [place] [address]., [address] Triglycerides 174(H) <=149 mg/dL [facility]CIANO BROWN ([place]) Comment: Interpretive Data Ages < or = 9 years Acceptable: <75 mg/dL Borderline high: 75-99 mg/dL High: >or= 100 mg/dL Ages 10 to 20 years Acceptable: <90 mg/dL Borderline high: 90-129 mg/dL High: >or= 130 mg/dL Ages > or = 20 years Desirable: <150 mg/dL Borderline high: 150-199 mg/dL High: 200-499 mg/dL Very high: >or= 499 mg/dL Literature References: 1. Expert Panel on Integrated Guidelines for Cardiovascular Health and Risk Reduction in Children and Adolescents. Pediatrics 2011;128:S213 2. NCEP Expert Panel. Circulation 2004;110:227 Current Interpretive Data was last revised on 2017. Testing performed by: [address] [address] HDL 60 >=40 mg/dL [facility]CI[facility] BROWN ([place]) Comment: Interpretive Data Ages < or = 19 years Acceptable: >45 mg/dL Borderline low: 40-45 mg/dL Low: <40 mg/dL Ages > or = 20 years Desirable: >or= 60 mg/dL Low: <40 mg/dL Literature References: 1. Expert Panel on Integrated Guidelines for Cardiovascular Health and Risk Reduction in Children and Adolescents. Pediatrics 2011;128:S213 2. NCEP Expert Panel. Circulation 2004;110:227 Current Interpretive Data was last revised on 2017. Testing performed by: [address] [address] LDL, calculated 128 <=129 mg/dL [facility] BR[facility] ([place]) Comment: Interpretive Data Ages < or = 19 years Acceptable: <110 mg/dL Borderline high: 110-129 mg/dL High: >or= 130 mg/dL Ages > or = 20 years Optimal: <100 mg/dL Near optimal: 100-129 mg/dL Borderline high: 130-159 mg/dL High: >160 mg/dL Calculated using the Boris LDL-C estimating equation. This equation was implemented on 2023. Prior to this date LDL-C was estimated using the Friedewald equation. Literature References: 1. Expert Panel on Integrated Guidelines for Cardiovascular Health and Risk Reduction in Children and Adolescents. Pediatrics 2011;128:S213 2. NCEP Expert Panel. Circulation 2004;110:227 3. Boris Yu et al. MARIE Cardiol. 2020 July 03;5(5):540-548. doi: 10.1001/[email or web address] Current Interpretive Data was last revised on 2023. Testing performed by: [address] [address] Non-HDL Cholesterol 159 mg/dL LUCIANO BROWN ([place]) Comment: Interpretive Data Ages < or = 19 years Acceptable: <120 mg/dL Borderline high: 120-144 mg/dL High: >145 mg/dL Ages > or = 20 years When triglycerides are >200 mg/dL, Non-HDL cholesterol is a secondary target of therapy with treatment goals that are 30 mg/dL greater than the LDL cholesterol target. Literature References: 1. Expert Panel on Integrated Guidelines for Cardiovascular Health and Risk Reduction in Children and Adolescents. Pediatrics 2011;128:S213 2. NCEP Expert Panel. Circulation 2004;110:227 Current Interpretive Data was last revised on 2017. Testing performed by: [address] [address] Chol/HDL ratio 4 CERNE Jose BROWN ([place]) Comment:Testing performed by : [address] [address] Blood 11/10/2024 8:09 AM CDT 11/10/2024 2:13 PM CDT us Froy Ponce MD LAB BLOOD ORDERABLES Stefania echols Result [facility] BROWN ([place]) 1 [facility] Department [place] [address] * (ABNORMAL) Comprehensive metabolic panel (11/10/2024 8:09 AM CDT) Sodium 140 135 - 145 mmol/L Comment:Testing performed by : [address] [address] Potassium, pl 4.5 3.3 - 4.9 mmol/L [facility]CI[facility]O BROWN ([place]) Comment:Testing performed by : [address] [address] Chloride 103 97 - 110 mmol/L [facility] ([place]) Comment:Testing performed by : [address] [address] CO2 27 22 - 32 mmol/L [facility] ([place]) Comment:Testing performed by : [address], [address] Anion gap 10 2 - 15 mmol/L [facility] ([place]) Comment:Testing performed by : [address], [address] BUN 27(H) 6 - 25 mg/dL [facility] ([place]) Comment:Testing performed by : [address], [address] Creatinine 0.89 0.60 - 1.10 mg/dL [facility] ([facility]) Comment:Testing performed by : [address], [address] Glucose 106 70 - 199 mg/dL [facility] ([facility]) Comment: Interpretive Data Fasting glucose >/= 126 mg/dl is diagnostic for diabetes. Fasting is defined as no caloric intake for at least 8 hours. Fasting glucose between 100 mg/dl to 125 mg/dl is diagnostic of prediabetes. In a patient with classic symptoms of hyperglycemia or hyperglycemic crisis, a random glucose >/= 200 mg/dl is diagnostic for diabetes. In the absence of unequivocal hyperglycemia, results should be confirmed by repeat testing. The classification and Diagnosis of Diabetes Diabetes Care 2021; 46: S19-S40. Current interpretive data was last revised 2022. Testing performed by: [address], [address] Calcium 10.3 8.5 - 10.3 mg/dL [facility] ([facility]) Comment:Testing performed by : [address], [address] Bilirubin, total 0.4 0.1 - 1.2 mg/dL [facility] ([facility]) Comment:Testing performed by : [address], [address] Protein, pl 7.2 6.5 - 8.5 g/dL [facility] ([facility]) Comment:Testing performed by : [address], [address] Albumin 4.4 3.5 - 5.0 g/dL [facility] ([facility]) Comment:Testing performed by : [address], [address] Alk phos 91 40 - 130 Units/L [facility] ([facility]) Comment:Testing performed by : [address], [address] ALT 41 7 - 45 Units/L [facility] ([facility]) Comment:Testing performed by : [address] [place] [address] AST 42 10 - 45 Units/L [facility] ([facility]) Comment:Testing performed by : [facility], [address] [place] [address]., [id number] Blood 11/10/2024 8:09 AM CDT 11/10/2024 2:13 PM CDT Froy Ponce MD LAB BLOOD ORDERABLES Stefania l Result [facility] ([place]) 1 [facility] [place] [address] * Screening Mammogram Left W Andre Unilateral Only (10/22/2024 1:38 PM CDT) Anatomical Region Laterality Modality Breast Left Mammography Impressions 10/22/2024 2:12 PM CDT No evidence of malignancy. OVERALL BI-RADS FINAL ASSESSMENT: 1 - Negative RECOMMENDATION: Recommend left breast annual screening mammography. Narrative 10/22/2024 2:12 PM CDT EXAMINATION: Screening Mammogram Left W Andre Unilateral Only: 10/22/2024 COMPARISON: Relevant prior studies available at the time of interpretation were reviewed, including the most recent mammogram on: 09/04/2023. TECHNIQUE: Mammography was performed with 2D and 3D digital breast tomosynthesis (DBT) images. CAD was utilized. BREAST PARENCHYMAL COMPOSITION: There are scattered areas of fibroglandular density. FINDINGS: There is no suspicious mass, calcification, or architectural distortion. Self Screening Mammogram IMG MAMMO PROCEDURES Fi nal Result * Dexa Axial Skeleton Bone Density 1 or 2 Site (06/21/2021 9:24 AM CDT) Anatomical Region Laterality Modality Body N/A Other 06/21/2021 10:0 8 AM CDT Narrative 06/21/2021 10:11 AM CDT EXAM DESCRIPTION: DEXA AXIAL SKELETON BONE DENSITY 1 OR MORE SITES REASON FOR STUDY: 85 y/o year old F with given history of screening. 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 FINDINGS: AP LUMBAR SPINE L1-L4: Total BMD is 1.056 g/cm2 T-score is 0.1 This is not a statistically significant decrease from prior exam. LEFT HIP: Total BMD is 0.793 g/cm2 T-score is -1.2 This is not a statistically significant decrease from prior exam. Femoral neck BMD is 0.590 g/cm2 T-score is -2.3 IMPRESSION: Based on the left femoral neck bone mineral density (T-score -2.3) the patient has low bone mass. Fracture risk assessment (FRAX): 10 year risk for a major osteoporotic fracture is 17 % 10 year risk for a hip fracture is 5.4 % The FRAX tool has not been validated in patients currently or previously treated with pharmacotherapy for osteoporosis. In such patients, clinical judgement must be exercised in interpreting FRAX scores as the fracture risk may be overestimated. REFERENCE: Bone mineral density: Normal (T-score above or = -1.0) Low bone mass (T-score between -1.0 and -2.5) replaces the previously used term osteopenia Osteoporosis (T-score = or below -2.5) Medical evaluation for secondary causes of low bone mineral density may be appropriate. FRAX is a World Health Organization validated fracture risk assessment tool that calculates a person's 10 year probability of a major osteoporosis related fracture and hip fracture. According to the National Osteoporosis Foundation guidelines, postmenopausal women and men age 50 or older with low bone mass and a 10 year probability of a major osteoporosis related fracture = or greater than 20% or a 10 year probability of a hip fracture = or greater than 3% should be considered for treatment. For further information, including treatment recommendations, please refer to the 2013 ISCD Official Positions (http://www.iscd.org) and the NOF's Clinician's Guide to Prevention and Treatment of Osteoporosis (http://www.nof.org/professionals/clinical-guidelines) THIS IS AN ELECTRONICALLY VERIFIED FINAL REPORT 06/21/2021 10:11 AM - Electronically signed by Pranay Snyder M.D. MF: [email or web address] Report ID: [id number] Reading Location: [id number] Procedure Note Pranay Snyder MD - 06/21/2021 EXAM DESCRIPTION: DEXA AXIAL SKELETON BONE DENSITY 1 OR MORE SITES REASON FOR STUDY: 85 y/o year old F with given history ofscreening. 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 FINDINGS: AP LUMBAR SPINE L1-L4: Total BMD is 1.056 g/cm2 T-score is 0.1 This is not a statistically significant decrease from prior exam. LEFT HIP: Total BMD is 0.793 g/cm2 T-score is -1.2 This is not a statistically significant decrease from prior exam. Femoral neck BMD is 0.590 g/cm2 T-score is -2.3 IMPRESSION: Based on the left femoral neck bone mineral density (T-score -2.3) the patient has low bone mass. Fracture risk assessment (FRAX): 10 year risk for a major osteoporotic fracture is 17 % 10 year risk for a hip fracture is 5.4 % The FRAX tool has not been validated in patients currently or previously treated with pharmacotherapy for osteoporosis. In such patients, clinical judgement must be exercised in interpreting FRAX scores as the fracturerisk may be overestimated. REFERENCE: Bone mineral density: Normal (T-score above or = -1.0) Low bone mass (T-score between -1.0 and -2.5) replaces thepreviously used term osteopenia Osteoporosis (T-score = or below -2.5) Medical evaluation for secondary causes of low bone mineral density may be appropriate. FRAX is a World Health Organization validated fracture risk assessmenttool that calculates a person's 10 year probability of a major osteoporosisrelated fracture and hip fracture. According to the National OsteoporosisFoundation guidelines, postmenopausal women and men age 50 or older with low bonemass and a 10 year probability of a major osteoporosis related fracture = or greater than 20% or a 10 year probability of a hip fracture = or greaterthan 3% should be considered for treatment. For further information, including treatment recommendations, please referto the 2013 ISCD Official Positions (http://www.iscd.org) and the NOF's Clinician's Guide to Prevention and Treatment of Osteoporosis (http://www.nof.org/professionals/clinical-guidelines) THIS IS AN ELECTRONICALLY VERIFIED FINAL REPORT 06/21/2021 10:11 AM - Electronically signed by Pranay Snyder M.D. MF: [email or web address] Report ID: [id number] Reading Location: [place] [address] Tr Hays MD IMG DXA PROCEDURES Final Result from Last 3 Months or Most Recently Relevant to Health Maintenance Insurance [employer] MEDICARE ADVANTAGE [place] [id number] UHC MEDICARE ADVANTAGE [facility] MEDICARE ADVANTAGE Advance Directives For more information, please contact: [phone] * Full Code (Latest Code Status on File) Date Activated Date Inactivated Comments 09/14/2020 9:56 AM 09/14/2020 4:02 PM Care Teams Desk Director Relationship Specialty Start Date End Date Froy Ponce MD [address] [place] [address] PCP - General Family Medicine 09/18/22
--- OUTSIDE RECORDS SUMMARY | 2025-01-09 10:34 | XMS_ITS | Encounter Summary ---
Author Organization [facility] Address [address] [place] [address] Care Team Providers Care Cutter Plastics Rolls Name Role Phone Unavailable Primary Care Provider Unavailabl e Encounter Details Date Type Department Care Team (Late st Contact Info) Description 01/07/2025 Lab Requisition [facility] Lab [address] [facility] [place] [id number] Yani Yeager MD [address] [facility] [address] [place] [address] Neoplasm of uncertain behavior of skin Social History Tobacco Use Types Packs/Day Years Used Date Smoking Tobacco: Never Assessed Comments Unknown Sex and Gender Information Value Date Recorded Sex Assigned at Not on file 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
--- OUTSIDE RECORDS SUMMARY | 2025-01-09 10:34 | XMS_ITS | Clinical Summary ---
Author Organization [facility] Address [address] [place] [address] Care Team Providers Care Farm Crops Teacher Name Role Phone Unavailable Primary Care Provider Unavailabl e Source Comments [facility],non-owned Affiliates and Associated Physician Practices is amultiple site organization consisting of ambulatory clinics and hospital sitesin [place], [place], [place] and [place]. This disclosure is being madepursuant to the Care Everywhere program and may not contain all information available regarding this patient. 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 Gender Identity Not on file Sexual Orientation Not on file Plan of Treatment Health Maintenance Due Date Last Done Comments BONE DENSITY TESTING 1936 DTAP/TDAP/TD VACCINES (1 - Tdap) 11/18/1955 PNEUMOCOCCAL VACCINE 50+ (1 of 1 - PCV) 1986 ZOSTER VACCINE (1 of 2) 1986 Respiratory Syncytial Virus (RSV) Vaccine Pt: or over 60 yrs (1 - 1-dose 75+ series) 11/18/2011 DEPRESSION SCREENING 03/05/2024 MEDICARE AWV CALENDAR YEAR 2024 COVID-19 VACCINE (3 - 2024- season) 2024 05/26/2020, 04/28/2020 INFLUENZA VACCINE (#1) 2024 1, 11/18/2019, 11/25/2018, Additional history exists HEPATITIS B VACCINE Aged Out No longe r eligible based on patient's age to complete this topic HIB VACCINE Aged Out No longer eligi ble based on patient's age to complete this topic HPV VACCINE Aged Out No longer eligi ble based on patient's age to complete this topic MENINGOCOCCAL (Group B) VACCINE SHARED DECISION-MAKING Aged Out No longer eligible based on patient's age to complete this topic MENINGOCOCCAL GROUPS A/C/Y/W VACCINE Aged Out No longer eligible based on patient's age to complete this topic [place] [address] UHC MANAGED MEDICARE ADV
--- OUTSIDE RECORDS SUMMARY | 2025-01-09 10:34 | XMS_ITS | Encounter Summary ---
Author Organization [facility] Address [address] [place] [address] Care Team Providers Care Litigation Legal Secretary Name Role Phone Tr Hays MD Primary Care Provider Encounter Details Date Type Department Care Team (Late st Contact Info) Description 06/23/2012 Mobile Order Only [facility] Internal Medicine [address] [phone] Tr Hays MD [address] [place] [phone] Social History Tobacco Use Types Packs/Day Years Used Date Smoking Tobacco: Former Cigarettes 1 30 0 1954 - 1984 Smokeless Tobacco: Never Alcohol Use Standard Drinks/Week Comments Yes 0.8 (1 standard drink = 0.6 oz p ure alcohol) occasional Comments No Sex and Gender Information Value Date Recorded Sex Assigned at Not on file 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
== END 2025-01-09 09:49 | disposition home or self-care (01) ==
PROVIDERS: PCP Hospitalist; Visit Provider Physician Assistant Surgical
DX: M25.561 Pain in right knee (principal); Z96.651 Presence of right artificial knee joint
CPT/HCPCS: 36415; 85652; 86140